=== PATIENT | female | born 1995 | race Caucasian/White ===

== ENCOUNTER 2017-11-23 20:47 | Emergency (ER) | payer BC, OTHER ==
[~2017-11-23] VITALS: Ht 170.2 cm; Wt 84.8 kg
[~2017-11-23 20:47] MED LIST: PROZAC
[2017-11-23 21:30] LABS: *BILIRUBIN,URIN NEGATIVE (NEGATIVE); *BLOOD, URINE Trace-lysed (NEGATIVE); *CLARITY,URINE CLEAR (CLEAR); *KETONES,URINE NEGATIVE (NEGATIVE); *PROTEIN,URINE NEGATIVE (NEGATIVE); *UROBILINOGEN,URINE 0.2 E.U./dl (NORMAL); LEUKOCYTE ESTERASE ,URINE TRACE (NEGATIVE); NITRITE, URINE NEGATIVE (NEGATIVE); PH,URINE 6.5 (5.0-8.0); UGLUCOSE NEGATIVE (NEGATIVE)
[2017-11-23 21:39] LABS: *COLOR,URINE LIGHT YELLOW (YELLOW)
[2017-11-23 21:40] LABS: BACTERIA,URINE FEW /HPF (NONE SEEN); RBC,URINE 0-3 /HPF (0-3); SQUAMOUS EPITHELIAL CELL,UR MODERATE /HPF (NONE SEEN)
--- NOTE | 2017-11-23 21:40 | NUR ---
JIMMIE MILLS AT BEDSIDE FOR MSE.
[2017-11-23 21:54] LABS: *URINE HCG, QUAL NEGATIVE (NEGATIVE)
--- NOTE | 2017-11-23 22:16 | NUR ---
PT TAKEN DOWN TO RADIOLOGY BY TECH. PT STABLE, NO ACUTE DISTRESS NOTED.
[2017-11-23] MEDS ORDERED: CIPROFLOXACIN HCL 250 MG TABLET PO ONE (23:08)
[2017-11-23] MEDS ORDERED: CIPROFLOXACIN HCL 250 MG TABLET ONE (23:19)
--- NOTE | 2017-11-23 23:27 | NUR ---
Patient discharged to home in stable conditon. Written and verbal after care instructions given. Patient verbalizes understanding of instructions. Pt ambulated from ER w/ steady gait. No distress noted. Pt took all personal belongings.
[2017-11-23 23:29] VITALS: BP 104/60
== END 2017-11-23 23:29 | disposition home or self-care (01) ==
LOC: ER 20:49
DX: N39.0 Urinary tract infection, site not specified (principal); R10.84 Generalized abdominal pain; F17.210 Nicotine dependence, cigarettes, uncomplicated; Z79.899 Other long term (current) drug therapy
CPT/HCPCS: 84703; A4663